=== PATIENT | female | born 1950 | race Caucasian/White ===

== ENCOUNTER 2016-10-06 15:50 | Emergency (ER) | payer OTHER ==
--- NOTE | 2016-10-06 16:03 | PDOC ---
History of Present Illness - General Chief Complaint: Injury Stated Complaint: RT FOOT SWELLING PAIN Time Seen by Provider: 10/06/16 15:58 History Source: Patient Exam Limitations: No Limitations - History of Present Illness Initial Comments: 10/06/16 15:58 66 y/o female with history of multiple myeloma, presents to ER with right foot pain after tripping from a broken shoe on Wednesday. Able to walk on it, but swollen and painful. No SOB or chest pain. No other injury. Has taken Tylenol yesterday for pain, none since. Past History - Past Medical History Allergies/Adverse Reactions: Allergies Allergy/AdvReac Type Severity Reaction Status Date / Time No Known Allergies Allergy Verified 10/06/16 15:52 Home Medications: Ambulatory Orders Lisinopril [Prinivil] 10 mg PO DAILY 03/18/15 HTN: Yes - Immunization History Immunization Up to Date: Yes - Psycho/Social/Smoking Cessation Hx Anxiety: No Suicidal Ideation: No Smoking History: Never smoked Have you smoked in the past 12 months: No Hx Alcohol Use: No Drug/Substance Use Hx: No Substance Use Type: None Review of Systems - Review of Systems Able to Perform ROS?: Yes Is the patient limited Croatian proficient: No Constitutional: No: Chills, Fever Respiratory: No: Cough, Shortness of Breath Cardiac (ROS): No: Chest Pain, Edema, Palpitations Integumentary: Yes: Bruising. No: Rash Neurological: No: Numbness, Paresthesia All Other Systems: Reviewed and Negative *Physical Exam - Physical Exam General Appearance: Yes: Nourished, Appropriately Dressed. No: Apparent Distress HEENT: positive: EOMI, MIS, Normal ENT Inspection Neck: positive: Supple Respiratory/Chest: positive: Lungs Clear, Normal Breath Sounds Cardiovascular: positive: Regular Rate, S1, S2 Vascular Pulses: Femoral (R): 4+, Femoral (L): 4+, Carotid (R): 4+, Carotid (L) : 4+, Dorsalis-Pedis (R): 4+, Doralis-Pedis (L): 4+ Lymphatic: negative: Adenopathy, Tenderness, Other Musculoskeletal: positive: Normal Inspection. negative: CVA Tenderness Extremity: positive: Normal Capillary Refill, Normal Range of Motion, Tender, Other (pulses 2+/4 b/l in LE, no focal deficits noted). negative: Normal Inspection (right foot with swelling and ecchymosis and tenderness to dorsum, lateral foot noted, pulses 2+/4 b/l in LE, no focal deficits noted, right ankle full ROM, no tenderness), Coldness, Cyanosis, Swelling, Calf Tenderness, Erythema, Inflammation Integumentary: positive: Dry, Warm, Swelling (right foor swollen and ecchymotic) , Ecchymosis. negative: Normal Color Neurologic: positive: operations program manager II-XII NML intact, Fully Oriented, Alert, Normal Mood/ Affect, Normal Response, Motor Strength 08/07 ED Treatment Course - ADDITIONAL ORDERS Additional order review: 10/06/16 16:05 Right foot contusion r/o fracture 10/06/16 16:59 Right ankle, no fracture Right foot non displace 3rd metatarsal fracture *DC/Admit/Observation/Transfer Diagnosis at time of Disposition: Fracture of metatarsal bone Qualifiers: Encounter type: initial encounter Metatarsal bone: third Fracture type: closed Fracture alignment: nondisplaced Laterality: right Qualified Code(s): S92.334A - Nondisplaced fracture of third metatarsal bone, right foot, initial encounter for closed fracture - Discharge Dispostion Disposition: HOME Condition at time of disposition: Good Admit: No - Referrals Referrals: Murtaza Mcdonald MD [Staff Physician] - - Patient Instructions Printed Discharge Instructions: DI for Foot Fracture Additional Instructions: Ice, elevate, Tylenol Rest Follow up with Orthopedics If worsen return to ER
[2016-10-06 16:04] VITALS: BP 137/81; PULSE 59; TEMP 98; BMI 24.5
== END 2016-10-06 17:16 | disposition home or self-care (01) ==
LOC: FER 15:50
DX: S92.334A Nondisplaced fracture of third metatarsal bone, right foot, initial encounter for closed fracture (principal); W22.8XXA Striking against or struck by other objects, initial encounter; Y93.9 Activity, unspecified; Y92.009 Unspecified place in unspecified non-institutional (private) residence as the place of occurrence of the external cause; C90.00 Multiple myeloma not having achieved remission; I10 Essential (primary) hypertension
CPT/HCPCS: 73610-TC-RT; 73630-TC-RT; 99282-25

== ENCOUNTER 2017-04-15 18:30 | Emergency (ER) | payer OTHER ==
--- NOTE | 2017-04-15 19:03 | PDOC ---
History of Present Illness - General History Source: Patient Exam Limitations: No Limitations - History of Present Illness Initial Comments: 04/15/17 20:04 The patient is a 66 year old female with past medical history of multiple myeloma (taking oral chemo) who presents to the ED with multiple complaints that began two days ago. The patient complains of headache and sinus pain, with accompanied dizziness. She states that she feels like her head is spinning when she changes position. She reports multiple episodes of nausea and vomiting, stating she is only bringing up phlegm. Additionally she complains of left rib pain, but denies any injury to the area. Lastly, she reports having dark yellow / brown colored urine. She denies any fevers, but reports having chills and sweats at times. She denies any cough, SOB, chest pain or urinary symptoms. She reports a similar episode after receiving IV chemo in the past. PAST MEDICAL HISTORY: see above PAST SURGICAL HISTORY: no significant history FAMILY HISTORY: no pertinent history SOCIAL HISTORY: Pt lives with family and is employed. MEDICATIONS: reviewed ALLERGIES: As per nursing notes ROS General: Present: chills/diaphoresis. No fevers or chills, no weakness, no weight loss HEENT: Present: sinus pain No change in vision. No sore throat,. No ear pain CardioVascular: No chest pain or shortness of breath Respiratory:No cough, or wheezing. Gastrointestinal: Present: nausea, vomiting no diarrhea or constipation, No rectal bleeding Genitourinary: Present: dark colored urine No dysuria or frequency Musculoskeletal: No joint or muscle pain or swelling Neurologic: Present: headache, dizziness No loss of consciousness Psychiatric: nor depression Skin: No rashes or easy bruising Endocrine: no increased thirst or abnormal weight change Allergic: no skin or latex allergy All other systems reviewed and normal PE General: Well-nourished well-developed individual, no acute distress HEENT: Mild tenderness over left maxillary sinus, no tenderness to the rest of sinuses. Dry mucous membranes Throat: Normal, tonsils normal, no erythema or exudate Neck: Supple, no meningeal signs, no lymphadenopathy Eyes::Pupils equal reactive and round, extraocular motion intact Chest: Nontender to palpation Cardiac: S1-S2 normal, regular rate and rhythm, no murmurs rubs or gallops Chest: Mild tenderness on palpation of lower ribs. Respiratory: Lungs clear to auscultation bilateral Abdomen: Soft, nondistended, normal bowel sounds, nontender to palpation diffusely Extremities: Warm, dry, no cyanosis, clubbing, or edema Skin: No rashes Neuro: Alert and oriented x3, nonfocal exam, grossly intact, normal gait Psych: Normal mood and affect <Delmi Sanchez - Last Filed: 04/15/17 21:11> - General History Source: Patient Exam Limitations: No Limitations - History of Present Illness Initial Comments: Medical decision making: This is a 66-year-old female with history of multiple myeloma who comes in complaining of multiple complaints. Patient was recently discharged from a hospital down [facility]. Patient said she was feeling better until today when she got back up. And developed headache, sinus pain and dark urine. In addition to that she was complaining of some dizziness and left-sided rib pain but denied any chest pain, shortness of breath cough congestion fevers . Given patient's underlying history she is at risk for increased infection as well as intracranial pathology. We will obtain CAT scan of head and sinuses We'll obtain EKG chest x-ray and labs CBC, comp, urinalysis, urine culture and cardiac enzymes We'll reassess 21:00 reassessment Patient was given some fluids, antiemetics and Tylenol with improvement in her symptoms. Patient has no vomiting in the emergency department 22:00 Reassessment patient remains feeling better, no further vomiting able to tolerate by mouth's. Assessment and plan: This is a 66-year-old female comes in complaining of headache sinus pain and generalized not feeling well in addition to some dark urine. Patient's head CT is negative for any acute intercranial pathology Patient's chest x-ray is negative for any pathology Patient's EKG is negative for any acute ST-T wave changes. Patient's urine does show that she has a urinary tract infection. Otherwise there is no white count or left shift Patient's CT of her sinuses show a large amount of chronic sinusitis with probably some superimposed left maxillary acute sinusitis. Patient given a dose of IV ceftriaxone in the emergency room which will cover both her sinusitis and her cystitis and discharged home on amoxicillin. Discussed with patient and her family the results of all of her tests and her workup and gave them copies of her workup. Stressed importance of close follow- up with her primary care doctors. <Daniel Vivar I - Last Filed: 04/15/17 23:53> - General Chief Complaint: Nausea/Vomiting Stated Complaint: NAUSEA & VOMITING X 3 DAYS Time Seen by Provider: 04/15/17 19:02 Past History <Delmi Sanchez - Last Filed: 04/15/17 21:11> - Past Medical History HTN: Yes - Immunization History Immunization Up to Date: Yes - Suicide/Smoking/Psychosocial Hx Smoking History: Never smoked Have you smoked in the past 12 months: No Hx Alcohol Use: No Drug/Substance Use Hx: No Substance Use Type: None <Daniel Vivar I - Last Filed: 04/15/17 23:53> - Past Medical History Allergies/Adverse Reactions: Allergies Allergy/AdvReac Type Severity Reaction Status Date / Time No Known Allergies Allergy Verified 04/15/17 18:32 Home Medications: Ambulatory Orders Lisinopril [Prinivil] 10 mg PO DAILY 03/18/15 Amoxicillin - [Amoxicillin 875mg Tablet -] 875 mg PO BID #20 tablet 04/15/17 Aspirin [Aspirin EC] 81 mg PO DAILY 04/15/17 Esomeprazole Magnesium [Nexium 24Hr] 20 mg PO DAILY 04/15/17 Ondansetron [Zofran Odt -] 4 mg SL TID #12 od.tablet 04/15/17 Pomalidomide [Pomalyst] 4 mg PO DAILY 04/15/17 Zoledronic Acid/Mannitol-Water [Zometa 4 mg/100 ml Injection] 4 mg IV ASDIR 02/20 Review of Systems - Review of Systems Able to Perform ROS?: Yes Comments:: 04/15/17 20:04 All Other Systems: Reviewed and Negative <LauraDelmi - Last Filed: 04/15/17 21:11> *Physical Exam - Vital Signs Last Vital Signs Temp Pulse Resp BP Pulse Ox 99.5 F 82 16 106/62 98 04/15/17 18:31 04/15/17 18:31 04/15/17 18:31 04/15/17 18:31 04/15/17 18:31 <LuisdavidDelmi - Last Filed: 04/15/17 21:11> Heart Score/ECG Review - ECG Intrepretation Comment:: 04/15/17 21:11 ECG obtained at 20:26 Sinus rhythm at 80 bpm with premature atrial complexes with aberrant conduction , voltage criteria for left ventricular hypertrophy, nonspecific ST abnormality. <Delmi Sanchez - Last Filed: 04/15/17 21:11> ED Treatment Course - LABORATORY CBC & Chemistry Diagram: 04/15/17 20:05 04/15/17 20:05 <kemDelmi hernandez - Last Filed: 04/15/17 21:11> - LABORATORY CBC & Chemistry Diagram: 04/15/17 20:05 04/15/17 20:05 <Daniel Vivar I - Last Filed: 04/15/17 23:53> *DC/Admit/Observation/Transfer - Attestations Scribe Attestion: 04/15/17 20:15 Documentation prepared by Delmi Sanchez, acting as medical editor for Daniel Vivar MD. <kemDelmi hernandez - Last Filed: 04/15/17 21:11> - Discharge Dispostion Admit: No <Daniel Vivar I - Last Filed: 04/15/17 23:53> Diagnosis at time of Disposition: Cystitis Sinusitis Qualifiers: Sinusitis location: maxillary Chronicity: acute - Discharge Dispostion Disposition: HOME Condition at time of disposition: Good - Prescriptions Prescriptions: Amoxicillin - [Amoxicillin 875mg Tablet -] 875 mg PO BID #20 tablet Ondansetron [Zofran Odt -] 4 mg SL TID #12 od.tablet - Referrals Referrals: Hernandez Bonilla MD [Primary Care Provider] - - Patient Instructions Additional Instructions: For nausea U can take Zofran 1 tablet as often as 3 times a day. For the sinus infection and urinary tract infection take amoxicillin 1 tablet twice a day for 10 days. Return to the emergency department immediately with ANY new, persistent or worsening symptoms. Continue any medications as previously prescribed by your physician. You should follow up with your primary doctor as soon as possible regarding today's emergency department visit. . Please make sure your doctor reviews the results of your emergency evaluation. Thank you for coming to the Emergency Department today for your care. It was a pleasure to see you today. Please note that your evaluation is INCOMPLETE until you follow-up with your doctor. - Post Discharge Activity
[2017-04-15 19:25] VITALS: BP 106/62; PULSE 82; TEMP 99.5; BMI 24.5
[2017-04-15] MEDS ORDERED: ONDANSETRON 4 MG/2 ML VIAL IVPB ONE (19:42)
[2017-04-15] MEDS ORDERED: SODIUM CHLORIDE 1,000 ML IV ONE (19:42)
[2017-04-15] MEDS ORDERED: MECLIZINE HCL 25 MG TABLET (FP) PO ONE (19:43)
[2017-04-15] MEDS ORDERED: ACETAMINOPHEN 1000 MG/100 ML VIAL (NON FORMULARY) IVPB ONE (19:43)
[2017-04-15] MEDS ORDERED: ACETAMINOPHEN INJECTION 100 ML IVPB ONE (19:46)
[2017-04-15] MEDS ORDERED: ONDANSETRON 4 MG/2 ML VIAL ONE (19:47)
[2017-04-15] MEDS ORDERED: MECLIZINE HCL 25 MG TABLET (FP) ONE (19:47)
[2017-04-15 20:28] LABS: HEMOGLOBIN 12.6 GM/dl (10.7-15.3); MEAN PLT VOLUME 9.4 fl (7.5-11.1)
[2017-04-15 20:29] LABS: HEMATOCRIT 37.4 % (32.4-45.2); RBC 3.78 M/mm3 (3.60-5.2); WHITE BLOOD COUNT 9.8 K/mm3 (4.0-10.8)
[2017-04-15 20:30] LABS: ALK PHOS 48 U/L (32-92); ANION GAP 8 (8-16); BILIRUBIN,TOTAL 1.6 mg/dl (0.2-1.0); BLOOD UREA NITROGEN 21 mg/dl (7-18); CALCIUM 7.7 mg/dl (8.4-10.2); CHLORIDE 100 mmol/L (98-107); CO2 22 mmol/L (22-28); CREATININE 1.2 mg/dl (0.6-1.3); GLUCOSE,RANDOM 109 mg/dl (74-106); LIPASE 19 U/L (22-51); MCH 33.8 pg (25.7-33.7); MCHC 34.1 g/dl (32.0-36.0); PLATELET COUNT 245 K/MM3 (134-434); POTASSIUM 3.4 mmol/L (3.5-5.1); RDW 15.3 % (11.6-15.6); SGOT/AST 30 U/L (10-42); SGPT/ALT 30 U/L (10-40); SODIUM 130 mmol/L (136-145); TOT PROT 6.2 g/dl (6.4-8.3)
[2017-04-15 20:37] LABS: URINE APPEARANCE Cloudy; URINE BILIRUBIN 2+ (NEGATIVE); URINE GLUCOSE (UA) Negative (NEGATIVE); URINE KETONE Trace (NEGATIVE); URINE NITRITE Negative (NEGATIVE); URINE UROBILINOGEN 0.2 (0.2-1.0)
[2017-04-15 20:38] LABS: URINE BLOOD 3+ (NEGATIVE); URINE COLOR DK YELLOW; URINE PROTEIN 3+ (NEGATIVE)
[2017-04-15 20:47] LABS: TROPONIN I (DFP) < 0.03 ng/ml (0.03-0.50)
[2017-04-15 21:41] LABS: URINE RBC 20-40 /hpf (0-3)
[2017-04-15 21:41] LABS: PLATELET ESTIMATE ADEQUATE
[2017-04-15 21:42] LABS: EPI CELLS FEW /HPF; URINE BACTERIA MODERATE /hpf (NEGATIVE); URINE WBC 15-30 (0-5)
[2017-04-15] MEDS ORDERED: CEFTRIAXONE 1 GM in DEXTROSE 5%-WATER - 50 ML IVPB ONE (22:18)
[2017-04-15] MEDS ORDERED: cefTRIAXone SODIUM 1 GM VIAL ONE (22:24)
--- NOTE | 2017-04-16 10:13 | EKG ---
Test Reason : Blood Pressure : / mmHG Vent. Rate : 080 BPM Atrial Rate : 080 BPM P-R Int : 146 ms QRS Dur : 080 ms QT Int : 390 ms P-R-T Axes : 048 -18 011 degrees QTc Int : 449 ms SINUS RHYTHM WITH PREMATURE ATRIAL COMPLEXES WITH ABERRANT CONDUCTION VOLTAGE CRITERIA FOR LEFT VENTRICULAR HYPERTROPHY NONSPECIFIC ST ABNORMALITY ABNORMAL ECG NO PREVIOUS ECGS AVAILABLE Confirmed by MD ABEBA, PAM ([id number]) on 04/16/2017 10:12:53 AM Referred By: DR MCCARTHY Confirmed By:PAM US MD
== END 2017-04-15 22:55 | disposition home or self-care (01) ==
LOC: FER 18:30
PROC: 3E03329 Introduction of Other Anti-infective into Peripheral Vein, Percutaneous Approach (ICD-10-PCS; principal; 2017-04-15)
PROC: 3E033NZ Introduction of Analgesics, Hypnotics, Sedatives into Peripheral Vein, Percutaneous Approach (ICD-10-PCS; 2017-04-15)
PROC: 3E033GC Introduction of Other Therapeutic Substance into Peripheral Vein, Percutaneous Approach (ICD-10-PCS; 2017-04-15)
PROC: 3E0337Z Introduction of Electrolytic and Water Balance Substance into Peripheral Vein, Percutaneous Approach (ICD-10-PCS; 2017-04-15)
DX: N30.90 Cystitis, unspecified without hematuria (principal); I10 Essential (primary) hypertension; C90.00 Multiple myeloma not having achieved remission
CPT/HCPCS: 36415; 70450-TC; 70486-TC; 71045-TC; 80053; 81003; 81015; 82550; 83690; 83735; 84484; 85025; 87086; 93005; 99283-25

== ENCOUNTER 2018-04-05 19:11 | Emergency (ER) | payer OTHER ==
[2018-04-05 19:19] VITALS: BP 133/71; PULSE 76; BMI 24.4
--- NOTE | 2018-04-05 19:21 | PDOC ---
History of Present Illness - General History Source: Patient, Family Exam Limitations: No Limitations - History of Present Illness Initial Comments: 04/05/18 20:17 Patient is a 67 year old female with a significant past medical history of HTN, Recurrent bronchitis, who presents to the ED with complaints of coughing that began x4 days on wednesday. Patient reports experiencing constant productive coughing with white sputum as well as associated symptoms throat pain, chest tightness and wheezing. As per patient's daughter, patient has been experiencing bronchitis every month for the last 6 months, stating she gets a cold, developes bronchitis and lasts for 3 weeks before relieving and beginning again the following month. Denies chest pain, Sob. Denies nausea, vomiting. Denies fevers, chills. Denies contact with sick individuals, out of state travelling. Denies any other symptoms. Allergies: None Social history: No smoking. No alcohol. No illicit drugs. Surgical history: None PMD: None <Timbo Moser - Last Filed: 04/05/18 20:16> <Venice Carmona - Last Filed: 04/06/18 01:51> - General Chief Complaint: Respiratory Stated Complaint: COUGH,SORE THROAT Time Seen by Provider: 04/05/18 19:20 Past History <Timbo Moser - Last Filed: 04/05/18 20:16> - Past Medical History Cancer: Yes (MULTIPLE MYELOMA) COPD: No HTN: Yes - Immunization History Immunization Up to Date: Yes - Suicide/Smoking/Psychosocial Hx Smoking History: Never smoked Have you smoked in the past 12 months: No Information on smoking cessation initiated: No Hx Alcohol Use: No Drug/Substance Use Hx: No Substance Use Type: None <Venice Carmona - Last Filed: 04/06/18 01:51> - Past Medical History Allergies/Adverse Reactions: Allergies Allergy/AdvReac Type Severity Reaction Status Date / Time No Known Allergies Allergy Verified 04/05/18 19:13 Home Medications: Ambulatory Orders Albuterol Sulfate 0.5% [Ventolin 0.5% Nebulizing Soln. -] 1 amp NEB TID #30 amp 04/05/18 Amox-Tr/K Cl [Augmentin - 875Mg Tablet] 1 tab PO BID #14 tablet 04/05/18 Aspirin 81 mg PO DAILY 01/01/19 Dexamethasone 4 mg PO DAILY 04/05/18 Lisinopril 10 mg PO DAILY 04/05/18 Pomalidomide [Pomalyst] 4 mg PO DAILY 04/05/18 Review of Systems - Review of Systems Able to Perform ROS?: Yes Comments:: 04/05/18 20:17 GENERAL/CONSTITUTIONAL: No fever or chills. No weakness. HEAD, EYES, EARS, NOSE AND THROAT: No change in vision. No ear pain or discharge. No sore throat. CARDIOVASCULAR: No chest pain or shortness of breath. RESPIRATORY: +coughing. No wheezing, or hemoptysis. GASTROINTESTINAL: No nausea, vomiting, diarrhea or constipation. GENITOURINARY: No dysuria, frequency, or change in urination. MUSCULOSKELETAL: No joint or muscle swelling or pain. No neck or back pain. SKIN: No rash NEUROLOGIC: No headache, vertigo, loss of consciousness, or change in strength/ sensation. ENDOCRINE: No increased thirst. No abnormal weight change. HEMATOLOGIC/LYMPHATIC: No anemia, easy bleeding, or history of blood clots. ALLERGIC/IMMUNOLOGIC: No hives or skin allergy. <Timbo Moser - Last Filed: 04/05/18 20:16> *Physical Exam - Vital Signs Last Vital Signs Temp Pulse Resp BP Pulse Ox 100.8 F H 76 20 133/71 100 04/05/18 19:16 04/05/18 19:16 04/05/18 19:16 04/05/18 19:16 04/05/18 19:16 - Physical Exam Comments: 04/05/18 20:17 GENERAL: Awake, alert, and fully oriented, in no acute distress HEAD: No signs of trauma EYES: PERRLA, EOMI, sclera anicteric, conjunctiva clear ENT: Auricles normal inspection, hearing grossly normal, nares patent, oropharynx clear without exudates. Moist mucosa NECK: Normal ROM, supple, no lymphadenopathy, JVD, or masses LUNGS: +wheeze in bilateral lung bases, left slightly more than right. Breath sounds equal, clear to auscultation bilaterally. No crackles HEART: Regular rate and rhythm, normal S1 and S2, no murmurs, rubs or gallops ABDOMEN: Soft, nontender, normoactive bowel sounds. No guarding, no rebound. No masses EXTREMITIES: Normal range of motion, no edema. No clubbing or cyanosis. No cords, erythema, or tenderness NEUROLOGICAL: Cranial nerves II through XII grossly intact. Normal speech, normal gait SKIN: Warm, Dry, normal turgor, no rashes or lesions noted. <Timbo Moser - Last Filed: 04/05/18 20:16> - Vital Signs Last Vital Signs Temp Pulse Resp BP Pulse Ox 100.8 F H 76 20 133/71 100 04/05/18 19:16 04/05/18 19:16 04/05/18 19:16 04/05/18 19:16 04/05/18 19:16 <Venice Carmona - Last Filed: 04/06/18 01:51> Moderate Sedation - Procedure Monitoring Vital Signs: Procedure Monitoring Vital Signs Temperature 100.8 F H 04/05/18 19:16 Pulse Rate 76 04/05/18 19:16 Respiratory Rate 20 04/05/18 19:16 Blood Pressure 133/71 04/05/18 19:16 O2 Sat by Pulse Oximetry (%) 100 04/05/18 19:16 <Timbo Moser - Last Filed: 04/05/18 20:16> - Procedure Monitoring Vital Signs: Procedure Monitoring Vital Signs Temperature 100.8 F H 04/05/18 19:16 Pulse Rate 76 04/05/18 19:16 Respiratory Rate 20 04/05/18 19:16 Blood Pressure 133/71 04/05/18 19:16 O2 Sat by Pulse Oximetry (%) 100 04/05/18 19:16 <Venice Carmona - Last Filed: 04/06/18 01:51> ED Treatment Course - Medications Given in the ED: ED Medications Discontinued Medications Generic Name Dose Route Start Last Admin Trade Name Kyq PRN Reason Stop Dose Admin Acetaminophen 650 mg 04/05/18 19:22 04/05/18 19:26 Tylenol - PO 04/05/18 19:23 650 mg ONCE ONE Administration Albuterol/Ipratropium 1 amp 04/05/18 19:40 04/05/18 19:44 Duoneb - NEB 04/05/18 19:41 1 amp ONCE ONE Administration <Timbo Moser - Last Filed: 04/05/18 20:16> Progress Note - Progress Note Progress Note: Documentation has been prepared under my direction and personally reviewed by me in its entirety. I attest that this documented accurately reflects all work, treatment, procedures and medical decision making performed by me. <Venice Carmona - Last Filed: 04/06/18 01:51> Medical Decision Making - Medical Decision Making This 67-year-old woman with a history of multiple myeloma presents with a several day history of productive cough. According to the patient and her daughter, she has frequent bouts of bronchitis. This particular episode has resulted in intermittent episodes of wheezing and shortness of breath. She has no history of smoking or asthma. Although she is followed by an oncologist, she has never seen a lemon grower for her recurrent lung infections. She has no history of using inhalers or nebulizer treatments during her episodes of bronchitis Exam as noted. Influenza rapid test performed and is negative Patient's daughter asked for RSV testing; swab was sent and is negative For the patient's wheezing,, she received DuoNeb nebulizer treatment. She felt subjectively better after the nebulizer treatment and repeat exam revealed clearing of wheezing and good air exchange bilaterally PA and lateral chest x-ray was performed to rule out pneumonia: Patient has some chronic changes but no evidence of effusion or infiltrate. Chest x-ray is essentially unchanged from previous CXR Since patient has had productive cough for several days and persistent dyspnea/ wheezing, patient be treated with Augmentin 875/125 twice a day; patient was cautioned to take the antibiotic with meals. Also, prescription for nebulizer was sent with patient and albuterol nebulizer solution prescription sent to her pharmacy. According to patient's daughter, the patient's oncologist will be contacted tomorrow and issues regarding her recurrent episodes of bronchitis will be addressed <Venice Carmona - Last Filed: 04/06/18 01:51> *DC/Admit/Observation/Transfer - Attestations Scribe Attestion: 04/05/18 20:17 Documentation prepared by Timbo Moser, acting as biomedical field service engineer for Venice Carmona MD. <Timbo Moser - Last Filed: 04/05/18 20:16> <Venice Carmona - Last Filed: 04/06/18 01:51> Diagnosis at time of Disposition: Acute bronchitis Qualifiers: Bronchitis organism: unspecified organism Qualified Code(s): J20.9 - Acute bronchitis, unspecified - Discharge Dispostion Disposition: HOME Condition at time of disposition: Stable - Prescriptions Prescriptions: Albuterol Sulfate 0.5% [Ventolin 0.5% Nebulizing Soln. -] 1 amp NEB TID #30 amp Amox-Tr/K Cl [Augmentin - 875Mg Tablet] 1 tab PO BID #14 tablet - Patient Instructions Printed Discharge Instructions: DI for Acute Bronchitis Additional Instructions: rest; drink plenty of water Augmentin 875/125 twice a day for one week; take with meals Albuterol nebulizer treatment up to 3 times a day as needed Follow-up with your doctor within the next 48 hours as discussed Return to ER if you have persistent high fever/shortness of breath or wheezing
[2018-04-05] MEDS ORDERED: ACETAMINOPHEN 325 MG TABLET (FP) ONE (19:22)
[2018-04-05] MEDS ORDERED: ACETAMINOPHEN 325 MG TABLET (FP) PO ONE (19:22)
[2018-04-05] MEDS ORDERED: ALBUTEROL SO4 2.5/IPRATROPIUM 0.5 INH SOL 3 ML VIAL.NEB. NEB ONE ×2 (19:40)
[2018-04-05 21:21] VITALS: TEMP 98.9
== END 2018-04-05 21:28 | disposition home or self-care (01) ==
LOC: FER 19:11
PROC: 3E0F7GC Introduction of Other Therapeutic Substance into Respiratory Tract, Via Natural or Artificial Opening (ICD-10-PCS; principal; 2018-04-05)
DX: J20.9 Acute bronchitis, unspecified (principal)
CPT/HCPCS: 71046-TC-FY; 87804; 87807; 94640; 99281-25

== ENCOUNTER 2018-12-19 14:40 | Emergency (ER) | payer OTHER | END 2018-12-19 18:58 | disposition home or self-care (01) | LOC: FER 14:40 ==